=== PATIENT | male | born 1955 | race Caucasian/White ===

== ENCOUNTER 2016-07-18 10:55 | Day surgery (SDC) | payer BC ==
[2016-07-18] MEDS ORDERED: Lactated Ringers 1,000 ML IV SCH (11:30)
[2016-07-18] MEDS ORDERED: fentaNYL 100 MCG/2 ML SDV ONE (11:32)
[2016-07-18] MEDS ORDERED: Propofol 200 MG/20 ML SDV ONE (11:32)
[2016-07-18] MEDS ORDERED: Midazolam 1 MG/ML 2 ML SDV ONE (11:32)
[2016-07-18] MEDS ORDERED: Glycopyrrolate 0.2 MG/ML SDV ONE (12:09)
[2016-07-18 14:07] VITALS: BP 134/92
--- NOTE | 2016-07-19 08:01 | OR ---
DATE OF PROCEDURE: 07/18/2016 POSTOPERATIVE DIAGNOSIS: Colon cancer screening. POSTOPERATIVE DIAGNOSIS: Diverticulosis. PROCEDURE: Colonoscopy to the cecum. ANESTHESIA: IV anesthesia with monitored anesthesia care. INDICATION: This 61-year-old white male is referred for a colonoscopy for colon cancer screening. He has never had a colonoscopic exam. I counseled him for the procedure, including risks and alternatives. and he gave his informed consent to proceed. DESCRIPTION OF PROCEDURE: The patient was placed in the left lateral decubitus position. IV anesthesia was administered by the Anesthesia Service. Time-out was held. A rectal exam was performed, which was unremarkable. The flexible video Olympus colonoscope was introduced through his anus, up his rectum, and out his colon all way to the cecum. En route, we saw a few scattered left-sided diverticula. There was no bleeding or inflammation associated with them. Once the cecum was reached, the scope was slowly withdrawn examining the mucosa throughout. No additional mucosal abnormalities were noted. The scope was retroflexed within the rectum with the distal rectum showing unremarkable. The scope was straightened and removed. He tolerated the procedure well. Pierce Bowser MD /[id number] RONNIE
== END 2016-07-18 14:10 | disposition home or self-care (01) ==
LOC: JP.SDS 10:55
PROVIDERS: ATTEND Surgery
PROC: 0DJD8ZZ Inspection of Lower Intestinal Tract, Via Natural or Artificial Opening Endoscopic (ICD-10-PCS; principal; 2016-07-18)
DX: Z12.11 Encounter for screening for malignant neoplasm of colon (principal); K57.90 Diverticulosis of intestine, part unspecified, without perforation or abscess without bleeding
CPT/HCPCS: 45378; J2250; J2704; J3010; J7120

== ENCOUNTER 2021-05-17 14:05 | Emergency (ER) | payer BC, MEDICAID ==
[2021-05-17] MEDS ORDERED: methylPREDNISolone Sodium Succinate 125 MG/2 ML SDV IM ONE (15:53)
[2021-05-17] MEDS ORDERED: Albuterol 8 GM Inhaler INH PRN (15:54)
[2021-05-17 16:26] VITALS: PULSE 101
[2021-05-17 16:39] LABS: CORONAVIRUS COVID-19 NAA NEGATIVE (NEGATIVE)
[2021-05-17] MEDS ORDERED: Albuterol/Ipratropium 3.0-0.5 MG/3 ML Neb Soln NEB ONE (17:13)
[2021-05-17 17:33] VITALS: BP 169/90
== END 2021-05-17 18:43 | disposition home or self-care (01) ==
LOC: JP.ED 14:05
DX: J18.9 Pneumonia, unspecified organism (principal); J98.01 Acute bronchospasm; R09.02 Hypoxemia; E78.00 Pure hypercholesterolemia, unspecified; Z79.82 Long term (current) use of aspirin; Z79.899 Other long term (current) drug therapy; Z72.0 Tobacco use; Z20.822 Contact with and (suspected) exposure to COVID-19
CPT/HCPCS: 0241U; 94640; 96372; 99285; J2930; J7620-GY

== ENCOUNTER 2022-01-29 06:22 | Day surgery (SDC) | payer MEDICAID ==
[2022-01-29] MEDS ORDERED: Lactated Ringers 1,000 ML IV SCH (07:00)
[2022-01-29] MEDS ORDERED: Midazolam 1 MG/ML 2 ML SDV ONE (07:04)
[2022-01-29] MEDS ORDERED: Propofol 200 MG/20 ML SDV ONE ×2 (07:04→07:45)
[2022-01-29 08:48] VITALS: BP 137/78; PULSE 75
== END 2022-01-29 08:56 | disposition home or self-care (01) ==
LOC: JP.SDS 06:22
PROVIDERS: ATTEND Student in an Organized Health Care Education/Training Program
DX: Z12.11 Encounter for screening for malignant neoplasm of colon (principal); K57.30 Diverticulosis of large intestine without perforation or abscess without bleeding; I10 Essential (primary) hypertension; Z79.899 Other long term (current) drug therapy
CPT/HCPCS: 45378; J2250; J2704; J7120

== ENCOUNTER 2022-02-02 12:05 | Inpatient (IN) | payer MEDICAID ==
[2022-02-02] MEDS ORDERED: HYDROmorphone 0.5 MG/0.5 ML Syringe IVPUSH ONE ×2 (12:57→15:48)
[2022-02-02] MEDS: Sodium Chloride 0.9% 10 ML Syringe FLUSH PRN ×2 (13:20→14:30)
[2022-02-02] MEDS ORDERED: Sodium Chloride 0.9% 50 ML IV ONE (13:44)
[2022-02-02] MEDS ORDERED: Iopamidol 612 MG/ML 100 ML Bottle IV PRN (13:44)
[2022-02-02] MEDS ORDERED: Sodium Chloride 0.9% 10 ML Syringe FLUSH PRN ×2 (13:44→15:58)
[2022-02-02] MEDS ORDERED: cefTRIAXone 2 GM in Sodium Chloride 0.9% 50 ML IV ONE ×2 (15:47→16:00)
[2022-02-02] MEDS ORDERED: metroNIDAZOLE/Normal Saline 500 MG in Premix Bag 1 BAG IV ONE ×2 (15:47→16:30)
[2022-02-02] MEDS ORDERED: Dextrose 5%-0.9% NaCl 1,000 ML IV SCH (16:00)
[2022-02-02] MEDS ORDERED: Dexamethasone 4 MG/ML SDV ONE (16:51)
[2022-02-02] MEDS ORDERED: Ondansetron 4 MG/2 ML SDV ONE (16:51)
[2022-02-02] MEDS ORDERED: Propofol 200 MG/20 ML SDV ONE (16:51)
[2022-02-02] MEDS ORDERED: Succinylcholine 200 MG/10 ML MDV ONE (16:51)
[2022-02-02] MEDS ORDERED: Glycopyrrolate 0.2 MG/ML 5 ML MDV ONE (16:51)
[2022-02-02] MEDS ORDERED: fentaNYL 250 MCG/5 ML SDV ONE ×2 (16:51→18:35)
[2022-02-02] MEDS ORDERED: Rocuronium 50 MG/5 ML Vial ONE ×2 (16:51→19:03)
[2022-02-02] MEDS ORDERED: Neostigmine Methylsulfate 1 MG/ML 5 ML Syringe ONE (16:51)
[2022-02-02] MEDS ORDERED: Bupivacaine 0.5%/EPINEPHrine 1:200,000 50 ML MDV ONE (16:56)
[2022-02-02] MEDS ORDERED: Lidocaine 1% with EPINEPHrine 1:100,000 50 ML MDV ONE (16:56)
[2022-02-02] MEDS ORDERED: Bupivacaine 0.5% 50 ML MDV ONE (16:56)
[2022-02-02] MEDS ORDERED: Heparin Sodium 5,000 Units/ML Vial ONE (17:48)
[2022-02-02] MEDS ORDERED: Sodium Chloride 0.9% 10 ML ONE ×2 (18:07→18:08)
[2022-02-02] MEDS ORDERED: Phenylephrine 1% 10 MG/ML SDV ONE (18:07)
[2022-02-02] MEDS ORDERED: Lactated Ringers 1,000 ML ONE (20:59)
[2022-02-02] MEDS ORDERED: Albuterol 0.083% 2.5 MG/3 ML Neb Soln NEB PRN (21:17)
[2022-02-02] MEDS ORDERED: Ondansetron 4 MG/2 ML SDV IVPUSH PRN ×2 (21:22→21:31)
[2022-02-02] MEDS ORDERED: diphenhydrAMINE 25 MG Cap PO PRN (21:31)
[2022-02-02] MEDS ORDERED: diphenhydrAMINE 50 MG/ML SDV IVPUSH PRN (21:31)
[2022-02-02] MEDS ORDERED: Naloxone 0.4 MG/ML SDV IVPUSH PRN (21:31)
[2022-02-02] MEDS: HYDROmorphone/Normal Saline 6 MG/30 ML PCA Vial IV PRN (22:00)
[2022-02-02] MEDS: metroNIDAZOLE/Normal Saline 500 MG in Premix Bag 1 BAG IV SCH (22:13)
[2022-02-02] MEDS: Lactated Ringers 1,000 ML IV SCH (22:14)
[2022-02-03 04:53] LABS: ESTIMATED GFR 98 mL/min (>60)
[2022-02-03] MEDS: Lactated Ringers 1,000 ML IV SCH ×2 (05:11→16:01)
[2022-02-03] MEDS: metroNIDAZOLE/Normal Saline 500 MG in Premix Bag 1 BAG IV SCH ×3 (05:12→21:25)
[2022-02-03] MEDS: Enoxaparin 40 MG/0.4 ML Syringe SUBCUT SCH (11:15)
[2022-02-03] MEDS: HYDROmorphone/Normal Saline 6 MG/30 ML PCA Vial IV PRN (15:10)
[2022-02-03] MEDS: cefTRIAXone 2 GM in Sodium Chloride 0.9% 50 ML IV SCH (16:01)
[2022-02-03] MEDS: Acetaminophen 500 MG Tab PO SCH (21:14)
[2022-02-04] MEDS: HYDROmorphone/Normal Saline 6 MG/30 ML PCA Vial IV PRN ×2 (04:13→21:45)
[2022-02-04] MEDS: Lactated Ringers 1,000 ML IV SCH ×2 (04:13→17:24)
[2022-02-04] MEDS: Acetaminophen 500 MG Tab PO SCH ×3 (05:50→21:19)
[2022-02-04] MEDS: metroNIDAZOLE/Normal Saline 500 MG in Premix Bag 1 BAG IV SCH ×3 (05:50→20:57)
[2022-02-04] MEDS: Enoxaparin 40 MG/0.4 ML Syringe SUBCUT SCH (09:19)
[2022-02-04] MEDS ORDERED: Sodium Phosphate 15 mMole/5 ML SDV IV ONE (10:30)
[2022-02-04] MEDS: Lisinopril 5 MG Tab PO SCH (11:24)
[2022-02-04] MEDS: Sodium Phosphate 15 MMOLE in Sodium Chloride 0.9% 250 ML IV SCH ×2 (11:27→14:10)
[2022-02-04] MEDS: oxyCODONE 5 MG Tab PO PRN ×3 (12:40→21:21)
[2022-02-04] MEDS: cefTRIAXone 2 GM in Sodium Chloride 0.9% 50 ML IV SCH (15:18)
[2022-02-04] MEDS: Melatonin 3 MG Tab PO SCH (20:57)
[2022-02-05] MEDS: Lactated Ringers 1,000 ML IV SCH (02:34)
[2022-02-05] MEDS: metroNIDAZOLE/Normal Saline 500 MG in Premix Bag 1 BAG IV SCH ×3 (06:05→22:06)
[2022-02-05] MEDS: Acetaminophen 500 MG Tab PO SCH ×3 (06:05→22:00)
[2022-02-05] MEDS: Lisinopril 5 MG Tab PO SCH (08:57)
[2022-02-05] MEDS: Enoxaparin 40 MG/0.4 ML Syringe SUBCUT SCH (08:57)
[2022-02-05] MEDS ORDERED: Sodium Phosphate 15 mMole/5 ML SDV IV ONE (10:00)
[2022-02-05] MEDS: Ketorolac 30 MG/ML SDV IVPUSH SCH ×3 (10:40→22:03)
[2022-02-05] MEDS: Sodium Phosphate 15 MMOLE in Sodium Chloride 0.9% 250 ML IV SCH ×2 (11:18→14:24)
[2022-02-05] MEDS: oxyCODONE 5 MG Tab PO PRN ×2 (13:48→20:28)
[2022-02-05] MEDS: cefTRIAXone 2 GM in Sodium Chloride 0.9% 50 ML IV SCH (15:37)
[2022-02-05] MEDS: Benzocaine/Cetylpyridinium/Menthol Lozenge MUCMEM PRN (20:33)
[2022-02-05] MEDS: Dextrose 5%-Lact Ringers w/KCl 1,000 ML IV SCH (20:33)
[2022-02-05] MEDS: Melatonin 3 MG Tab PO SCH (22:01)
[2022-02-06] MEDS: Ketorolac 30 MG/ML SDV IVPUSH SCH ×4 (04:51→21:43)
[2022-02-06] MEDS: metroNIDAZOLE/Normal Saline 500 MG in Premix Bag 1 BAG IV SCH ×3 (04:57→21:45)
[2022-02-06] MEDS: Acetaminophen 500 MG Tab PO SCH ×3 (06:11→21:42)
[2022-02-06] MEDS ORDERED: hydrALAZINE 20 MG/ML SDV IVPUSH PRN (08:12)
[2022-02-06] MEDS: Dextrose 5%-Lact Ringers w/KCl 1,000 ML IV SCH (08:39)
[2022-02-06] MEDS: Enoxaparin 40 MG/0.4 ML Syringe SUBCUT SCH (08:42)
[2022-02-06] MEDS: Lisinopril 5 MG Tab PO SCH (08:43)
[2022-02-06] MEDS ORDERED: NACL IV ONE ×2 (09:00)
[2022-02-06] MEDS ORDERED: POTASSIUM PHOS IV ONE ×2 (09:00)
[2022-02-06] MEDS: Potassium Phos in 0.9 % NaCl 15 MMOL in Premix Bag 1 BAG IV SCH ×4 (09:22→12:42)
[2022-02-06] MEDS: cefTRIAXone 2 GM in Sodium Chloride 0.9% 50 ML IV SCH (16:48)
[2022-02-06] MEDS: Benzocaine/Cetylpyridinium/Menthol Lozenge MUCMEM PRN (19:10)
[2022-02-06] MEDS: oxyCODONE 5 MG Tab PO PRN (20:13)
[2022-02-06] MEDS: Melatonin 3 MG Tab PO SCH (21:42)
[2022-02-07] MEDS: Cyclobenzaprine 10 MG Tab PO PRN ×2 (00:49→08:20)
[2022-02-07] MEDS: oxyCODONE 5 MG Tab PO PRN ×4 (00:49→22:53)
[2022-02-07] MEDS: Ketorolac 30 MG/ML SDV IVPUSH SCH (03:59)
[2022-02-07] MEDS: Acetaminophen 500 MG Tab PO SCH ×3 (06:01→22:50)
[2022-02-07] MEDS: metroNIDAZOLE/Normal Saline 500 MG in Premix Bag 1 BAG IV SCH ×3 (06:02→22:49)
[2022-02-07] MEDS: Enoxaparin 40 MG/0.4 ML Syringe SUBCUT SCH (08:33)
[2022-02-07] MEDS ORDERED: Furosemide 20 MG/2 ML VIAL IVPUSH ONE (09:00)
[2022-02-07] MEDS: Lisinopril 5 MG Tab PO SCH (09:40)
[2022-02-07] MEDS: Potassium Chloride 20 MEQ Tab.ER PO SCH ×3 (09:41→20:23)
[2022-02-07] MEDS: cefTRIAXone 2 GM in Sodium Chloride 0.9% 50 ML IV SCH (16:31)
[2022-02-07] MEDS: Melatonin 3 MG Tab PO SCH (20:23)
[2022-02-08] MEDS: metroNIDAZOLE/Normal Saline 500 MG in Premix Bag 1 BAG IV SCH (06:00)
[2022-02-08] MEDS: oxyCODONE 5 MG Tab PO PRN ×2 (06:04→09:41)
[2022-02-08] MEDS: Acetaminophen 500 MG Tab PO SCH (06:05)
[2022-02-08] MEDS: Enoxaparin 40 MG/0.4 ML Syringe SUBCUT SCH (09:43)
[2022-02-08] MEDS: Lisinopril 5 MG Tab PO SCH (09:43)
[2022-02-08 10:27] VITALS: BP 147/81; PULSE 84
== END 2022-02-08 13:45 | disposition home health service (06) | DRG 331 ==
LOC: JP.ED 12:05 → JP.SDS 16:36 → JP.MS 21:13
PROVIDERS: ADMIT Student in an Organized Health Care Education/Training Program; ATTEND Student in an Organized Health Care Education/Training Program
PROC: 0DBN0ZZ Excision of Sigmoid Colon, Open Approach (ICD-10-PCS; principal; 2022-02-02)
PROC: 0D1H0Z4 Bypass Cecum to Cutaneous, Open Approach (ICD-10-PCS; 2022-02-02)
DX: K57.20 Diverticulitis of large intestine with perforation and abscess without bleeding (principal); E87.6 Hypokalemia; E83.39 Other disorders of phosphorus metabolism; I10 Essential (primary) hypertension; Z20.822 Contact with and (suspected) exposure to COVID-19; M06.9 Rheumatoid arthritis, unspecified; F17.200 Nicotine dependence, unspecified, uncomplicated; J44.9 Chronic obstructive pulmonary disease, unspecified; E78.00 Pure hypercholesterolemia, unspecified; H54.7 Unspecified visual loss; Z79.52 Long term (current) use of systemic steroids; Z79.82 Long term (current) use of aspirin; Z79.899 Other long term (current) drug therapy
CPT/HCPCS: 36415; 74177; 74177-26; 80048; 80053; 82040; 83735; 84100; 84484; 85025; 85027; 86140; 86850; 86900; 86901; 88307; 93005; 96365; 96368; 96375; 96376; 97110-GP; 97140-GP; 97162-GP; 97530-GP; 97535-GP; 99285-25; A9270-GY; J0330; J0696; J1100; J1170; J1644; J1650; J1885; J1940; J2370; J2405; J2704; J2710; J3010; J3360; J3480; J3490; J7050; J7120; Q9967; U0002

== ENCOUNTER 2022-06-26 01:57 | Emergency (ER) | payer MEDICAID ==
[2022-06-26] MEDS ORDERED: Sodium Chloride 0.9% 10 ML Syringe FLUSH PRN (02:13)
[2022-06-26] MEDS ORDERED: Ondansetron 4 MG/2 ML SDV IVPUSH SCH (02:15)
[2022-06-26] MEDS ORDERED: Iopamidol 612 MG/ML 100 ML Bottle IV STA (02:28)
[2022-06-26] MEDS ORDERED: Sodium Chloride 0.9% 50 ML IV STA (02:28)
[2022-06-26 02:48] LABS: ESTIMATED GFR 95 mL/min (>60)
[2022-06-26 03:09] LABS: CORONAVIRUS COVID-19 NAA NEGATIVE (NEGATIVE)
[2022-06-26] MEDS ORDERED: Bisacodyl 5 MG Tab PO ONE (04:25)
[2022-06-26 04:47] VITALS: BP 166/107; PULSE 83
== END 2022-06-26 04:47 | disposition home or self-care (01) ==
LOC: JP.ED 01:57
DX: K59.01 Slow transit constipation (principal); E86.0 Dehydration; E78.00 Pure hypercholesterolemia, unspecified; I10 Essential (primary) hypertension; J44.9 Chronic obstructive pulmonary disease, unspecified; Z79.82 Long term (current) use of aspirin; Z79.899 Other long term (current) drug therapy; Z72.0 Tobacco use; Z93.3 Colostomy status; Z20.822 Contact with and (suspected) exposure to COVID-19
CPT/HCPCS: 0241U; 36415; 74177; 80053; 83605; 83690; 85025; 96374; 99284; A9270; J2405; J3490; Q9967

== ENCOUNTER 2022-08-28 07:15 | Inpatient (IN) | payer MEDICARE, MEDICAID ==
[~2022-08-28 07:15] MED LIST: Meropenem 500 MG SDV ONE
[2022-08-28] MEDS ORDERED: Glycopyrrolate 0.2 MG/ML 5 ML MDV ONE (08:07)
[2022-08-28] MEDS ORDERED: Neostigmine Methylsulfate 1 MG/ML 5 ML Syringe ONE (08:07)
[2022-08-28] MEDS ORDERED: Ondansetron 4 MG/2 ML SDV ONE (08:07)
[2022-08-28] MEDS ORDERED: Rocuronium 50 MG/5 ML Vial ONE ×2 (08:07→14:06)
[2022-08-28] MEDS ORDERED: Propofol 200 MG/20 ML SDV ONE (08:07)
[2022-08-28] MEDS ORDERED: Dexamethasone 4 MG/ML SDV ONE (08:07)
[2022-08-28] MEDS ORDERED: Succinylcholine 200 MG/10 ML MDV ONE (08:07)
[2022-08-28 10:26] LABS: HEMATOCRIT 38.3 % (38.4-49.7); MEAN CORPUSCULAR HGB CONC 33.9 g/dL (31.6-35.5); MEAN CORPUSCULAR VOLUME 88.5 fL (81.4-99.0); RED BLOOD CELL COUNT 4.33 M/uL (4.14-5.76); WHITE BLOOD CELL COUNT,WBC 6.2 K/uL (3.2-11.0)
[2022-08-28] MEDS ORDERED: Dextrose 5%-Lactated Ringers 1,000 ML IV SCH ×2 (10:30→16:15)
[2022-08-28] MEDS ORDERED: Albuterol/Ipratropium 3.0-0.5 MG/3 ML Neb Soln NEB ONE (10:30)
[2022-08-28] MEDS: POLYMYXIN B SODIUM CHLORIDE ONE ×4 (10:33→10:54)
[2022-08-28] MEDS: NEOMYCIN ONE ×4 (10:33→10:54)
[2022-08-28 10:54] LABS: A/G RATIO 0.8 (1.2-2.2); ALANINE AMINOTRANSFERASE,ALT 35 U/L (12-78); ALBUMIN 3.1 g/dL (3.4-5.0); ALKALINE PHOSPHATASE 113 U/L (46-116); ASPARTATE AMNIOTRANSFERASE,AST 19 U/L (15-37); BILIRUBIN TOTAL 0.6 mg/dL (0.2-1.0); BLOOD UREA NITROGEN,BUN 17 mg/dL (7-18); CARBON DIOXIDE,CO2 24 mmol/L (21-32); CHLORIDE,CL 102 mmol/L (100-108); CREATININE 0.8 mg/dL (0.8-1.3); EST CRCL DRUG DOSING (CG) 83.07 mL/min; ESTIMATED GFR 98 mL/min (>60); GLUCOSE RANDOM 90 mg/dL (74-106); PHOSPHORUS 3.5 mg/dL (2.5-4.9); POTASSIUM,K 3.9 mmol/L (3.6-5.2); PRO B-TYPE NATRIUR PEPT,BNPPRO 265 pg/mL (5-125); PROTEIN TOTAL,TP 7.2 g/dL (6.4-8.2); SODIUM,NA 135 mmol/L (140-148)
[2022-08-28 10:56] LABS: ANION GAP 12.9 mmol/L (5.0-14.0)
[2022-08-28] MEDS ORDERED: cefOXitin 2 GM in Sodium Chloride 0.9% 50 ML IV ONE (11:00)
[2022-08-28] MEDS ORDERED: Ketamine 20 MG in Sodium Chloride 0.9% 19.8 ML IV SCH (11:00)
[2022-08-28] MEDS ORDERED: Ketamine 500 MG/5 ML MDV IV SCH (11:00)
[2022-08-28] MEDS ORDERED: Sodium Chloride 0.9% 10 ML ONE (12:45)
[2022-08-28] MEDS ORDERED: fentaNYL 100 MCG/2 ML SDV ONE (12:45)
[2022-08-28] MEDS ORDERED: Naloxone 0.4 MG/ML SDV IVPUSH PRN (13:00)
[2022-08-28] MEDS ORDERED: Ropivacaine 38 ML, dexAMETHasone 8 MG, EPINEPHrine 0.4 MG, Sodium Chloride 0.9% 39.6 ML NERVRT SCH ×4 (13:00)
[2022-08-28] MEDS ORDERED: Lactated Ringers 1,000 ML ONE (13:13)
[2022-08-28] MEDS ORDERED: fentaNYL 250 MCG/5 ML SDV ONE (13:52)
[2022-08-28] MEDS ORDERED: Cyclobenzaprine 10 MG Tab PO PRN (16:09)
[2022-08-28] MEDS ORDERED: Meperidine PF 100 MG/ML Syringe IM PRN (16:14)
[2022-08-28] MEDS: fentaNYL 2,500 MCG in Sodium Chloride 0.9% 200 ML EPIDUR SCH (16:48)
[2022-08-28] MEDS ORDERED: hydrOXYzine HCl 50 MG/ML SDV IM PRN (17:00)
[2022-08-28] MEDS ORDERED: Metoclopramide 10 MG/2 ML SDV IVPUSH PRN (17:00)
[2022-08-28] MEDS ORDERED: Naloxone 0.4 MG/ML SDV IV PRN (17:00)
[2022-08-28] MEDS ORDERED: Labetalol 20 MG/4 ML Syringe IVPUSH PRN (17:00)
[2022-08-28] MEDS ORDERED: diphenhydrAMINE 50 MG/ML SDV IVPUSH PRN ×2 (17:00)
[2022-08-28] MEDS ORDERED: Albuterol/Ipratropium 3.0-0.5 MG/3 ML Neb Soln INH PRN (17:00)
[2022-08-28] MEDS ORDERED: Acetaminophen 500 MG Tab PO PRN (17:00)
[2022-08-28] MEDS ORDERED: Ondansetron 4 MG/2 ML SDV IVPUSH PRN (17:00)
[2022-08-28] MEDS: MVI, Adult with Vitamin K 10 ML, Thiamine 200 MG, Zinc/Copper/Manganese/Selenium 1 ML i... IV SCH ×4 (17:52)
[2022-08-28] MEDS: cefOXitin 2 GM in Sodium Chloride 0.9% 50 ML IV SCH ×2 (17:52→23:17)
[2022-08-28] MEDS ORDERED: Pantoprazole 40 MG Vial IVPUSH SCH (18:00)
[2022-08-28] MEDS: Acetaminophen 500 MG Tab PO SCH (19:54)
[2022-08-28] MEDS: Albuterol/Ipratropium 3.0-0.5 MG/3 ML Neb Soln INH SCH (20:31)
[2022-08-29] MEDS: Acetaminophen 500 MG Tab PO SCH ×3 (03:17→19:42)
[2022-08-29 04:33] LABS: HEMATOCRIT 34.9 % (38.4-49.7); HEMOGLOBIN 11.8 g/dL (12.9-16.9); IMMATURE GRAN ABSOLUTE AUTO 0.04 K/uL (0.00-0.23); IMMATURE GRAN PERCENT AUTO 0.4 % (0.0-0.7); LYMPHOCYTES ABSOLUTE AUTO 0.63 K/uL (0.8-3.3); LYMPHOCYTES PERCENT AUTO 6.3 % (11.4-47.7); MEAN CORPUSCULAR HEMOGLOBIN 30.3 pg (31.6-35.5); MEAN CORPUSCULAR HGB CONC 33.8 g/dL (31.6-35.5); MEAN CORPUSCULAR VOLUME 89.5 fL (81.4-99.0); MONOCYTES ABSOLUTE AUTO 0.68 K/uL (0.20-0.90); MONOCYTES PERCENT AUTO 6.8 % (3.3-12.6); NEUTROPHILS ABSOLUTE AUTO 8.62 K/uL (1.0-7.6); NEUTROPHILS PERCENT AUTO 86.5 % (40.0-78.1); PLATELET COUNT,PLT 371 K/uL (130-375)
[2022-08-29 04:57] LABS: A/G RATIO 0.7 (1.2-2.2); ALANINE AMINOTRANSFERASE,ALT 26 U/L (12-78); ALBUMIN 2.5 g/dL (3.4-5.0); ALKALINE PHOSPHATASE 87 U/L (46-116); ASPARTATE AMNIOTRANSFERASE,AST 16 U/L (15-37); BILIRUBIN TOTAL 0.4 mg/dL (0.2-1.0); BLOOD UREA NITROGEN,BUN 16 mg/dL (7-18); CALCIUM 8.3 mg/dL (8.5-10.1); CARBON DIOXIDE,CO2 27 mmol/L (21-32); CHLORIDE,CL 104 mmol/L (100-108); CREATININE 0.8 mg/dL (0.8-1.3); EST CRCL DRUG DOSING (CG) 83.07 mL/min; ESTIMATED GFR 98 mL/min (>60); GLUCOSE RANDOM 156 mg/dL (74-106); MAGNESIUM 1.9 mg/dL (1.8-2.4); PHOSPHORUS 3.7 mg/dL (2.5-4.9); POTASSIUM,K 4.5 mmol/L (3.6-5.2); PRO B-TYPE NATRIUR PEPT,BNPPRO 102 pg/mL (5-125); SODIUM,NA 138 mmol/L (140-148)
[2022-08-29] MEDS: cefOXitin 2 GM in Sodium Chloride 0.9% 50 ML IV SCH ×4 (05:04→23:31)
[2022-08-29 05:20] LABS: ANION GAP 11.5 mmol/L (5.0-14.0)
[2022-08-29] MEDS: Albuterol/Ipratropium 3.0-0.5 MG/3 ML Neb Soln INH SCH ×4 (07:01→20:52)
[2022-08-29] MEDS: Celecoxib 200 MG Cap PO SCH ×2 (08:14→20:48)
[2022-08-29] MEDS: Folic Acid 1 MG Tab PO SCH (08:14)
[2022-08-29] MEDS: Tamsulosin 0.4 MG Cap.ER PO SCH ×2 (08:20→17:14)
[2022-08-29] MEDS: fentaNYL 2,500 MCG in Sodium Chloride 0.9% 200 ML EPIDUR SCH (11:52)
[2022-08-29] MEDS: MVI, Adult with Vitamin K 10 ML, Thiamine 200 MG, Zinc/Copper/Manganese/Selenium 1 ML i... IV SCH ×4 (17:13)
[2022-08-29] MEDS: Pantoprazole 40 MG Tab.CR PO SCH (17:14)
[2022-08-30] MEDS: Acetaminophen 500 MG Tab PO SCH ×3 (03:03→19:00)
[2022-08-30] MEDS: Dextrose 5%-Lactated Ringers 1,000 ML IV SCH ×2 (03:06→22:21)
[2022-08-30 04:38] LABS: HEMATOCRIT 31.8 % (38.4-49.7); HEMOGLOBIN 10.8 g/dL (12.9-16.9); MEAN CORPUSCULAR HEMOGLOBIN 30.5 pg (31.6-35.5); MEAN CORPUSCULAR VOLUME 89.8 fL (81.4-99.0); RED BLOOD CELL COUNT 3.54 M/uL (4.14-5.76); WHITE BLOOD CELL COUNT,WBC 10.4 K/uL (3.2-11.0)
[2022-08-30 05:10] LABS: A/G RATIO 0.8 (1.2-2.2); ALANINE AMINOTRANSFERASE,ALT 27 U/L (12-78); ALBUMIN 2.6 g/dL (3.4-5.0); ALKALINE PHOSPHATASE 87 U/L (46-116); ASPARTATE AMNIOTRANSFERASE,AST 26 U/L (15-37); BILIRUBIN TOTAL 0.4 mg/dL (0.2-1.0); BLOOD UREA NITROGEN,BUN 11 mg/dL (7-18); CALCIUM 8.2 mg/dL (8.5-10.1); CARBON DIOXIDE,CO2 29 mmol/L (21-32); CHLORIDE,CL 101 mmol/L (100-108); CREATININE 0.7 mg/dL (0.8-1.3); EST CRCL DRUG DOSING (CG) 94.94 mL/min; ESTIMATED GFR 102 mL/min (>60); GLUCOSE RANDOM 127 mg/dL (74-106); MAGNESIUM 1.8 mg/dL (1.8-2.4); PHOSPHORUS 2.9 mg/dL (2.5-4.9); POTASSIUM,K 4.1 mmol/L (3.6-5.2); PRO B-TYPE NATRIUR PEPT,BNPPRO 97 pg/mL (5-125); PROTEIN TOTAL,TP 5.9 g/dL (6.4-8.2); SODIUM,NA 135 mmol/L (140-148)
[2022-08-30] MEDS: cefOXitin 2 GM in Sodium Chloride 0.9% 50 ML IV SCH ×2 (05:20→12:12)
[2022-08-30 05:32] LABS: ANION GAP 9.1 mmol/L (5.0-14.0)
[2022-08-30] MEDS ORDERED: Calcium Carbonate 500 MG Tab.Chew PO PRN (05:39)
[2022-08-30] MEDS: Tamsulosin 0.4 MG Cap.ER PO SCH ×2 (07:29→16:53)
[2022-08-30] MEDS: Albuterol/Ipratropium 3.0-0.5 MG/3 ML Neb Soln INH SCH ×4 (07:32→20:16)
[2022-08-30] MEDS: Folic Acid 1 MG Tab PO SCH (09:47)
[2022-08-30] MEDS: Celecoxib 200 MG Cap PO SCH ×2 (09:47→20:16)
[2022-08-30] MEDS: fentaNYL 2,500 MCG in Sodium Chloride 0.9% 200 ML EPIDUR SCH (12:12)
[2022-08-30] MEDS: Pantoprazole 40 MG Tab.CR PO SCH (16:53)
[2022-08-31] MEDS: Acetaminophen 500 MG Tab PO SCH ×3 (03:40→20:42)
[2022-08-31] MEDS ORDERED: Meropenem 500 MG SDV ONE (06:38)
[2022-08-31] MEDS ORDERED: Lidocaine 1% with EPINEPHrine 1:100,000 50 ML MDV ONE (06:38)
[2022-08-31] MEDS ORDERED: Bupivacaine 0.5% 50 ML MDV ONE (06:38)
[2022-08-31] MEDS ORDERED: Propofol 200 MG/20 ML SDV ONE ×3 (07:11→07:59)
[2022-08-31] MEDS ORDERED: Lactated Ringers 1,000 ML ONE (07:18)
[2022-08-31] MEDS ORDERED: Ropivacaine 38 ML, dexAMETHasone 8 MG, EPINEPHrine 0.4 MG, Sodium Chloride 0.9% 39.6 ML NERVRT SCH ×4 (07:30)
[2022-08-31] MEDS: Albuterol/Ipratropium 3.0-0.5 MG/3 ML Neb Soln INH SCH ×4 (07:40→20:13)
[2022-08-31] MEDS: Celecoxib 200 MG Cap PO SCH ×2 (09:13→22:16)
[2022-08-31] MEDS: Tamsulosin 0.4 MG Cap.ER PO SCH ×2 (09:14→16:46)
[2022-08-31] MEDS: Folic Acid 1 MG Tab PO SCH (09:14)
[2022-08-31] MEDS ORDERED: traMADol 50 MG Tab PO SCH (10:00)
[2022-08-31] MEDS ORDERED: traMADol 50 MG Tab PO PRN (10:49)
[2022-08-31] MEDS: Meropenem 500 MG in Sodium Chloride 0.9% 50 ML IV SCH ×3 (11:09→22:19)
[2022-08-31] MEDS: Dextrose 5%-Lactated Ringers 1,000 ML IV SCH (15:05)
[2022-08-31] MEDS: Pantoprazole 40 MG Tab.CR PO SCH (16:46)
[2022-09-01] MEDS: Meropenem 500 MG in Sodium Chloride 0.9% 50 ML IV SCH ×3 (03:17→16:40)
[2022-09-01] MEDS: Acetaminophen 500 MG Tab PO SCH ×3 (03:31→20:23)
[2022-09-01] MEDS: Dextrose 5%-Lactated Ringers 1,000 ML IV SCH (04:27)
[2022-09-01] MEDS: Albuterol/Ipratropium 3.0-0.5 MG/3 ML Neb Soln INH SCH ×4 (07:37→20:23)
[2022-09-01] MEDS: Folic Acid 1 MG Tab PO SCH (08:46)
[2022-09-01] MEDS: Tamsulosin 0.4 MG Cap.ER PO SCH ×2 (08:47→16:41)
[2022-09-01] MEDS: Celecoxib 200 MG Cap PO SCH ×2 (08:47→20:24)
[2022-09-01] MEDS: Docusate Sodium 100 MG Cap PO SCH ×2 (08:54→20:24)
[2022-09-01] MEDS: Bisacodyl 5 MG Tab PO SCH ×2 (08:54→20:24)
[2022-09-01] MEDS: Lisinopril 10 MG Tab PO SCH ×2 (10:48→20:24)
[2022-09-01 11:14] LABS: HBSAG SCREEN Negative (Negative)
[2022-09-01] MEDS: Pantoprazole 40 MG Tab.CR PO SCH (16:40)
[2022-09-01] MEDS ORDERED: atorvaSTATin 20 MG Tab PO SCH (21:00)
[2022-09-02] MEDS: Acetaminophen 500 MG Tab PO SCH (03:06)
[2022-09-02] MEDS: Albuterol/Ipratropium 3.0-0.5 MG/3 ML Neb Soln INH SCH (07:39)
[2022-09-02] MEDS: Celecoxib 200 MG Cap PO SCH (08:25)
[2022-09-02] MEDS: Docusate Sodium 100 MG Cap PO SCH (08:25)
[2022-09-02] MEDS: Folic Acid 1 MG Tab PO SCH (08:25)
[2022-09-02] MEDS: Bisacodyl 5 MG Tab PO SCH (08:26)
[2022-09-02] MEDS: Lisinopril 10 MG Tab PO SCH (08:26)
[2022-09-02 08:27] VITALS: BP 167/84
[2022-09-02] MEDS: Tamsulosin 0.4 MG Cap.ER PO SCH (08:27)
[2022-09-02 08:28] VITALS: PULSE 99
== END 2022-09-02 09:29 | disposition home or self-care (01) | DRG 330 ==
LOC: JP.SDSSCHI 09:42 → JP.MS 16:09
PROVIDERS: ADMIT Surgery; ATTEND Surgery
PROC: 0D1N0ZP Bypass Sigmoid Colon to Rectum, Open Approach (ICD-10-PCS; principal; 2022-08-28)
PROC: 0DT80ZZ Resection of Small Intestine, Open Approach (ICD-10-PCS; 2022-08-28)
PROC: 0WQF0ZZ Repair Abdominal Wall, Open Approach (ICD-10-PCS; 2022-08-28)
PROC: 0DN80ZZ Release Small Intestine, Open Approach (ICD-10-PCS; 2022-08-28)
PROC: 0DQ80ZZ Repair Small Intestine, Open Approach (ICD-10-PCS; 2022-08-28)
PROC: 0DNW0ZZ Release Peritoneum, Open Approach (ICD-10-PCS; 2022-08-28)
DX: Z43.3 Encounter for attention to colostomy (principal); K43.0 Incisional hernia with obstruction, without gangrene; K56.7 Ileus, unspecified; K57.20 Diverticulitis of large intestine with perforation and abscess without bleeding; R33.9 Retention of urine, unspecified; M06.9 Rheumatoid arthritis, unspecified; I10 Essential (primary) hypertension; F10.20 Alcohol dependence, uncomplicated; Z79.82 Long term (current) use of aspirin; Z98.890 Other specified postprocedural states; Z87.891 Personal history of nicotine dependence
CPT/HCPCS: 36415; 74019; 74019-26; 80053; 83735; 83880; 84100; 85025; 85027; 86803; 87340; 87449; 88302; 88304; 88305; 88307; 94640; A9270-GY; C9113; J0131; J0171; J0330; J0456; J0694; J1100; J1200; J2020; J2185; J2405; J2704; J2710; J2765; J2795; J3010; J3410; J3411; J3490; J7040; J7050; J7120; J7121; J7620

== ENCOUNTER 2024-12-08 13:34 | Emergency (ER) | payer MEDICARE ==
[2024-12-08 14:21] LABS: BASE EXCESS VENOUS 0.2 mm/L; BASOPHILS ABSOLUTE AUTO 0.03 K/uL (0.00-0.10); BASOPHILS PERCENT AUTO 0.4 % (0.1-1.3); BICARBONATE,VENOUS 24.1 mmol/L; EOSINOPHILS ABSOLUTE AUTO 0.06 K/uL (0.00-0.40); EOSINOPHILS PERCENT AUTO 0.9 % (0.0-5.4); IMMATURE GRAN ABSOLUTE AUTO 0.01 K/uL (0.00-0.23); IMMATURE GRAN PERCENT AUTO 0.1 % (0.0-0.7); LYMPHOCYTES ABSOLUTE AUTO 0.77 K/uL (0.8-3.3); LYMPHOCYTES PERCENT AUTO 11.2 % (11.4-47.7); MONOCYTES ABSOLUTE AUTO 0.30 K/uL (0.20-0.90); MONOCYTES PERCENT AUTO 4.3 % (3.3-12.6); NEUTROPHILS ABSOLUTE AUTO 5.73 K/uL (1.0-7.6); NEUTROPHILS PERCENT AUTO 83.1 % (40.0-78.1); O2 SATURATION VENOUS 94.7; OXYHEMOGLOBIN 91.7 %; PCO2 VENOUS 38.9 mm/Hg; PH,VENOUS 7.409 (7.350-7.450); PLATELET COUNT,PLT 294 K/uL (130-375); PO2 VENOUS 74.5 mm/Hg; RED BLOOD CELL COUNT 4.62 M/uL (4.14-5.76); TOTAL HEMOGLOBIN 14.9 g/dL (13.5-18.0); WHITE BLOOD CELL COUNT,WBC 6.9 K/uL (3.2-11.0)
[2024-12-08 14:42] LABS: ALANINE AMINOTRANSFERASE,ALT 35 U/L (12-78); ASPARTATE AMNIOTRANSFERASE,AST 28 U/L (15-37); BILIRUBIN TOTAL 0.4 mg/dL (0.2-1.0); BLOOD UREA NITROGEN,BUN 15 mg/dL (7-18); CARBON DIOXIDE,CO2 28 mmol/L (21-32); CHLORIDE,CL 104 mmol/L (100-108); CREATININE 0.6 mg/dL (0.8-1.3); EST CRCL DRUG DOSING (CG) 107.81 mL/min; ESTIMATED GFR 106 mL/min (>60); GLUCOSE RANDOM 127 mg/dL (74-106); POTASSIUM,K 3.7 mmol/L (3.6-5.2); PRO B-TYPE NATRIUR PEPT,BNPPRO 732 pg/mL (5-125); PROTEIN TOTAL,TP 7.8 g/dL (6.4-8.2); SODIUM,NA 138 mmol/L (140-148)
[2024-12-08 14:44] LABS: TROPONIN I HIGH SENSITIVITY 24.6 pg/mL (<=60.3)
[2024-12-08 14:45] LABS: A/G RATIO 1.0 (1.2-2.2)
[2024-12-08] MEDS: Iopamidol 755 Mg/ML 100 ML Bottle IV SCH (16:00)
[2024-12-08 16:17] LABS: APPEARANCE,URINE TURBID (CLEAR); GLUCOSE,URINE NEGATIVE (NEGATIVE); OCCULT BLOOD,URINE MODERATE (NEGATIVE)
[2024-12-08 16:20] LABS: AMPHETAMINES SCREEN, URINE NEGATIVE (NEGATIVE); METHADONE SCREEN, URINE NEGATIVE (NEGATIVE); METHAMPHETAMINES SCREEN, URINE NEGATIVE (NEGATIVE); OXYCODONE SCREEN,URINE NEGATIVE (NEGATIVE); PROPOXYPHENE SCREEN,URINE NEGATIVE (NEGATIVE); THC SCREEN,URINE 50 NG/ML PRESUMPTIVE POSITIVE (NEGATIVE)
[2024-12-08 16:33] LABS: SQUAMOUS EPITHELIAL CELLS,UR NOT SEEN /HPF; UROTHELIAL CELLS,URINE NOT SEEN /HPF
[2024-12-08] MEDS: Metoprolol Tartrate 5 MG/5 ML SDV IVPUSH ONE (17:27)
[2024-12-08] MEDS: Ciprofloxacin in D5W 400 MG in Premix Bag 1 BAG IV ONE (17:38)
[2024-12-08 18:11] VITALS: BP 169/79; PULSE 121
== END 2024-12-08 18:48 | disposition home or self-care (01) ==
LOC: JP.ED 13:34
DX: I48.91 Unspecified atrial fibrillation (principal); N30.00 Acute cystitis without hematuria; I10 Essential (primary) hypertension; J44.9 Chronic obstructive pulmonary disease, unspecified; M19.90 Unspecified osteoarthritis, unspecified site; F17.200 Nicotine dependence, unspecified, uncomplicated; R06.9 Unspecified abnormalities of breathing; Z79.51 Long term (current) use of inhaled steroids; Z79.82 Long term (current) use of aspirin; Z79.899 Other long term (current) drug therapy
CPT/HCPCS: 36415; 71045; 71275; 80053; 80305; 81001; 82803; 83605; 83735; 83880; 84484; 85025; 85379; 87086; 93005; 93010; 96365; 96375; 99284; 99285; A9270; J0744; J3490; J7030; Q9967